=== PATIENT | male | born 1975 | race Caucasian/White ===

== ENCOUNTER 2016-12-03 10:40 | Observation (INO) | payer OTHER ==
[2016-12-03] MEDS ORDERED: SODIUM CHLORIDE 0.9% 1,000 ML IV STA (11:15)
--- NOTE | 2016-12-03 11:31 | ED ---
General Adult HPI <Kieran Quintana - Last Filed: 12/03/16 13:17> - General Source: patient, RN notes reviewed Mode of arrival: ambulatory Limitations: no limitations <June Vergara - Last Filed: 12/03/16 13:22> - General Chief complaint: Dizziness Stated complaint: dizziness, diarrhea Time Seen by Provider: 12/03/16 11:07 - History of Present Illness Initial comments: 41-year-old male presents emergency Department chief complaint of rectal bleeding and lightheadedness. Patient states he has a history of multiple polyps in his colon and has had part of his colon removed in the past. Patient states her last month or so his dose increased blood in his stool. Patient states her last few days he's noticed lightheadedness and has had episodes of diarrhea. Patient denies any fever chills with this. Patient denies any chest pain or shortness of breath. Patient states that he just does not feel right she just does not feel like himself so he was concerned. Patient states he is not currently having any other symptoms at this time.Patient denies any recent fever, chills, shortness of breath, chest pain, back pain, abdominal pain, nausea vomiting, numbness or tingling, dysuria or hematuria, constipation, headaches or visual changes, or any other current symptoms. (June Vergara) - Related Data Home Medications Medication Instructions Recorded Confirmed No Known Home Medications [No 12/03/16 12/03/16 Known Home Medications] Allergies Allergy/AdvReac Type Severity Reaction Status Date / Time hydromorphone [From Dilaudid] Allergy Rash/Hives Verified 12/03/16 11:21 Review of Systems ROS Other: All systems not noted in ROS Statement are negative. <MarianoKieran - Last Filed: 12/03/16 13:17> ROS Other: All systems not noted in ROS Statement are negative. <June Vergara - Last Filed: 12/03/16 13:22> ROS Statement: Those systems with pertinent positive or pertinent negative responses have been documented in the HPI. Past Medical History Past Medical History: No Reported History History of Any Multi-Drug Resistant Organisms: None Reported Past Surgical History: Appendectomy, Hernia Repair Additional Past Surgical History / Comment(s): COLECTOMY R/T POLYP Past Psychological History: No Psychological Hx Reported Smoking Status: Never smoker Past Alcohol Use History: None Reported Past Drug Use History: None Reported <June Vergara - Last Filed: 12/03/16 13:22> General Exam <Kieran Quintana - Last Filed: 12/03/16 13:17> Limitations: no limitations <June Vergara - Last Filed: 12/03/16 13:22> - General Exam Comments Initial Comments: General: The patient is awake and alert, in no distress, and does not appear acutely ill. Eye: Pupils are equal, round and reactive to light, extra-ocular movements are intact; there is normal conjunctiva bilaterally. No signs of icterus. Ears, nose, mouth and throat: There are moist mucous membranes. Neck: The neck is supple, there is no tenderness. Cardiovascular: There is a regular rate and rhythm. No murmur, rub or gallop is appreciated. Respiratory: Lungs are clear to auscultation, respirations are non-labored, breath sounds are equal. No wheezes, stridor, rales, or rhonchi. Gastrointestinal: Soft, non-distended, non-tender abdomen without masses or organomegaly noted. There is no rebound or guarding present. No CVA tenderness. Bowel sounds are unremarkable. Back: There is no tenderness to palpation in the midline. There is no obvious deformity. No rashes noted. Musculoskeletal: Normal ROM, no tenderness, There is no pedal edema. There is no calf tenderness or swelling. Sensation intact. Pulses equal bilaterally 2+. Neurological: CN II-XII intact, There are no obvious motor or sensory deficits. Coordination appears grossly intact. Speech is normal. Skin: Skin is warm and dry and no rashes or lesions are noted. Psychiatric: Cooperative, appropriate mood & affect, normal judgment. (June Vergara) Course <Kieran Quintana - Last Filed: 12/03/16 13:17> <June Vergara - Last Filed: 12/03/16 13:22> Vital Signs 12/03/16 12/03/16 12/03/16 10:53 11:43 11:44 Temperature 98.1 F Pulse Rate 96 Pulse Rate [ 88 99 [place] ] Respiratory 16 Rate Blood Pressure 157/91 Blood Pressure 142/89 129/89 [Right Arm] O2 Sat by Pulse 97 Oximetry 12/03/16 12:31 Temperature Pulse Rate 82 Pulse Rate [ [place] ] Respiratory 18 Rate Blood Pressure 125/83 Blood Pressure [Right Arm] O2 Sat by Pulse 100 Oximetry - Reevaluation(s) Reevaluation #1: 12/03/16 13:17 I did personally do a [id number] examination the patient did discuss the findings with him. His abdomen is soft and nontender just time I did do his stool which is brown blood neck stent. He still symptomatic he will get a blood transfusion. I did discuss the case with Dr. Coker, Dr. Martinez will be consulted (Kieran Quintana) Medical Decision Making - Lab Data Result diagrams: 12/03/16 11:31 12/03/16 11:31 <Kieran Quintana - Last Filed: 12/03/16 13:17> - Lab Data Result diagrams: 12/03/16 11:31 12/03/16 11:31 <June Vergara - Last Filed: 12/03/16 13:22> - Medical Decision Making 41-year-old male presents emergency department with chief complaint of rectal bleeding and lightheadedness. At this time patient lab work is reviewed that does show an anemia. We will give the patient 1 unit of blood. We will admit to Dr. Coker and have be staying in consult at. We'll repeat hemoglobins as well as Protonix with the patient. He shouldn't agreement with plan. (June Vergara) - Lab Data Lab Results 12/03/16 12/03/16 12/03/16 Range/Units 11:31 11:31 11:31 WBC 9.9 (3.8-10.6) k/uL RBC 5.05 (4.30-5.90) m/uL Hgb 7.5 L (13.0-17.5) gm/dL Hct 30.1 L (39.0-53.0) % MCV 59.5 L (80.0-100.0) fL MCH 14.8 L (25.0-35.0) pg MCHC 24.9 L (31.0-37.0) g/dL RDW 19.7 H (11.5-15.5) % Sodium 141 (137-145) mmol/L Potassium 4.4 (3.5-5.1) mmol/L Chloride 108 H (98-107) mmol/L Carbon Dioxide 25 (22-30) mmol/L Anion Gap 8 mmol/L BUN 10 (9-20) mg/dL Creatinine 1.00 (0.66-1.25) mg/dL Est GFR (MDRD) Af Amer >60 (>60 ml/min/1.73 sqM) Est GFR (MDRD) Non-Af >60 (>60 ml/min/1.73 sqM) Glucose 88 (74-99) mg/dL Calcium 9.7 (8.4-10.2) mg/dL Total Bilirubin 0.5 (0.2-1.3) mg/dL AST 26 (17-59) U/L ALT 37 (21-72) U/L Alkaline Phosphatase 54 (38-126) U/L Total Protein 7.2 (6.3-8.2) g/dL Albumin 4.3 (3.5-5.0) g/dL Urine Color Urine Appearance (Clear) Urine pH (5.0-8.0) Ur Specific [place] (1.001-1.035) Urine Protein (Negative) Urine Glucose (UA) (Negative) Urine Ketones (Negative) Urine Blood (Negative) Urine Nitrate (Negative) Urine Bilirubin (Negative) Urine Urobilinogen (<2.0) mg/dL Ur Leukocyte Esterase (Negative) Urine RBC (0-5) /hpf Urine WBC (0-5) /hpf Hyaline Casts (0-2) /lpf Urine Mucus (None) /hpf Stool Occult Blood (Negative) Blood Type O Negative Blood Type Recheck No Antibody Screen NEGATIVE Spec Expiration Date 12/06/2016 - 233012/03/16 12/03/16 Range/Units 11:31 13:05 WBC (3.8-10.6) k/uL RBC (4.30-5.90) m/uL Hgb (13.0-17.5) gm/dL Hct (39.0-53.0) % MCV (80.0-100.0) fL MCH (25.0-35.0) pg MCHC (31.0-37.0) g/dL RDW (11.5-15.5) % Sodium (137-145) mmol/L Potassium (3.5-5.1) mmol/L Chloride (98-107) mmol/L Carbon Dioxide (22-30) mmol/L Anion Gap mmol/L BUN (9-20) mg/dL Creatinine (0.66-1.25) mg/dL Est GFR (MDRD) Af Amer (>60 ml/min/1.73 sqM) Est GFR (MDRD) Non-Af (>60 ml/min/1.73 sqM) Glucose (74-99) mg/dL Calcium (8.4-10.2) mg/dL Total Bilirubin (0.2-1.3) mg/dL AST (17-59) U/L ALT (21-72) U/L Alkaline Phosphatase (38-126) U/L Total Protein (6.3-8.2) g/dL Albumin (3.5-5.0) g/dL Urine Color Yellow Urine Appearance Clear (Clear) Urine pH 5.0 (5.0-8.0) Ur Specific [place] 1.022 (1.001-1.035) Urine Protein Negative (Negative) Urine Glucose (UA) Negative (Negative) Urine Ketones Negative (Negative) Urine Blood Negative (Negative) Urine Nitrate Negative (Negative) Urine Bilirubin Negative (Negative) Urine Urobilinogen <2.0 (<2.0) mg/dL Ur Leukocyte Esterase Small H (Negative) Urine RBC 2 (0-5) /hpf Urine WBC 15 H (0-5) /hpf Hyaline Casts 1 (0-2) /lpf Urine Mucus Rare H (None) /hpf Stool Occult Blood Negative (Negative) Blood Type Blood Type Recheck Antibody Screen Spec Expiration Date Disposition <Kieran Quintana - Last Filed: 12/03/16 13:17> Time of Disposition: 13:22 Decision Date: 12/03/16 Decision Time: 13:22 <June Vergara - Last Filed: 12/03/16 13:22> Clinical Impression: GI bleed, Anemia, blood loss, Lightheadedness Disposition: ADMITTED IP TO THIS [facility] Condition: Stable
[2016-12-03 11:48] LABS: Anisocytosis Slight; CH 14.8; CHCM 25.2; HCT 30.1 % (39.0-53.0); HDW 3.62; HGB 7.5 gm/dL (13.0-17.5); Hypochromasia Marked; MCH 14.8 pg (25.0-35.0); MCV 59.5 fL (80.0-100.0); Mean Platelet Volume 6.8; Microcytosis Marked; Poikilocytosis Slight; RBC 5.05 m/uL (4.30-5.90); RDW 19.7 % (11.5-15.5); WBC 9.9 k/uL (3.8-10.6); WBC (Perox) 10.25
[2016-12-03 11:53] LABS: Appearance,Urine Clear (Clear); Bilirubin,Urine Negative (Negative); Glucose,Urine (UA) Negative (Negative); Ketones,Urine Negative (Negative); Leukocyte Esterase,Urine Small (Negative); Mucus,Urine Rare /hpf; Nitrite,Urine Negative (Negative); Particle Count 4831; Protein,Urine Negative (Negative); RBC,Urine 2 /hpf (0-5); Specific Gravity,Urine 1.022 (1.001-1.035); UA Billing (MACRO vs. MICRO) MICRO; Urobilinogen,Urine <2.0 mg/dL (<2.0); WBC,Urine 15 /hpf (0-5)
[2016-12-03 12:01] LABS: ALT 37 U/L (21-72); AST 26 U/L (17-59); Alkaline Phosphatase 54 U/L (38-126); Anion Gap 8 mmol/L; Blood Urea Nitrogen 10 mg/dL (9-20); Calcium 9.7 mg/dL (8.4-10.2); Carbon Dioxide 25 mmol/L (22-30); Chloride 108 mmol/L (98-107); Glucose 88 mg/dL (74-99); Non-African American GFR(MDRD) >60 (>60 ml/min/1.73 sqM); Potassium 4.4 mmol/L (3.5-5.1); Sodium 141 mmol/L (137-145); Total Bilirubin 0.5 mg/dL (0.2-1.3); Total Protein 7.2 g/dL (6.3-8.2)
[2016-12-03 12:11] LABS: MCHC 24.9 g/dL (31.0-37.0)
[2016-12-03] MEDS ORDERED: NALOXONE 0.4 MG/ML 1 ML VIAL IV PRN (13:26)
[2016-12-03] MEDS ORDERED: SODIUM CHLORIDE 0.9% 1,000 ML IV SCH (13:30)
[2016-12-03 13:56] LABS: Add Differential Manual Differential
[2016-12-03 14:02] LABS: Large Platelets Present; Myelocytes % 0.5 %; Nucleated Red Blood Cells 0 /100 WBC (0-0); Polychromasia Present; Total Cells Counted 200
[2016-12-03 14:03] LABS: Ovalocytes Present
[2016-12-03] MEDS ORDERED: PEG 3350-NA SULF,BICARB,CL/KCL 4,000 ML BOTTLE PO ONE (14:45)
--- NOTE | 2016-12-03 15:56 | P.GSCN ---
History of Present Illness Consult date: 12/03/16 Reason for Consult: GI bleed Requesting physician: June Vergara History of present illness: Patient is a 41-year-old male with medical history significant for subtotal colectomy at age 19 related to polyps with strong family history of colon cancer on father's side. Patient presented to the emergency department with complaints of dizziness and feeling lightheaded that started around 4 PM yesterday she was walking. Patient states that he always has a little bit of blood mixed in his stool but over the last week the amount of blood has increased. Patient denies chills, fevers, nausea, vomiting, shortness of breath , chest pain, or abdominal pain. Patient reports that his last colonoscopy was approximately 2 years ago, patient doesn't recall findings but states it was pretty much benign. Patient states that he only has 7 inches of colon left. In the emergency department patient was noted to have a hemoglobin of 7.5 with stool for occult blood negative. Patient is currently awaiting transfusion of 1 unit of packed cells. Patient states he feels better after receiving IV fluids. Past Medical History Past Medical History: GI Bleed Additional Past Medical History / Comment(s): Colon polyps-pt states pre- cancerous, lower GI bleeds. History of Any Multi-Drug Resistant Organisms: None Reported Past Surgical History: Appendectomy, Hernia Repair Additional Past Surgical History / Comment(s): COLECTOMY R/T POLYP at age 19yrs , R inguinal hernia repair, colonoscopies. Past Anesthesia/Blood Transfusion Reactions: No Reported Reaction Past Psychological History: No Psychological Hx Reported Additional Psychological History / Comment(s): Pt resides with his spouse and 2 of his children that are under the age of 18yrs. He is independent. Smoking Status: Never smoker Past Alcohol Use History: Occasional Past Drug Use History: None Reported - Past Family History Father Family Medical History: Cancer Additional Family Medical History / Comment(s): Father at the age of 25 yrs from colon cancer. Colon cancer runs in father's side of family. Mother Family Medical History: Cancer Additional Family Medical History / Comment(s): Pt states his mother was "riddled" with cancer and at the age of 53yrs. Medications and Allergies Home Medications Medication Instructions Recorded Confirmed Type No Known Home Medications [No 12/03/16 12/03/16 History Known Home Medications] Allergies Allergy/AdvReac Type Severity Reaction Status Date / Time hydromorphone [From Dilaudid] Allergy Rash/Hives Verified 12/03/16 11:21 Surgical - Exam Vital Signs Temp Pulse Resp BP Pulse Ox 98.1 F 96 16 157/91 97 12/03/16 10:53 12/03/16 10:53 12/03/16 10:53 12/03/16 10:53 12/03/16 10:53 GENERAL: Pt awake and alert, well-appearing, well-nourished, and in no acute distress. HEAD: Atraumatic, normocephalic. EYES: Pupils equal and round. Sclera anicteric, conjunctiva are normal. ENT: Moist mucous membranes. LUNGS: Breath sounds clear to auscultation bilaterally. No wheezes, rales, or rhonchi. HEART: Heart S1, S2, no S3 or S4. regular rate and rhythm.No murmurs, rubs or gallops. ABDOMEN: Soft, obese, nontender, nondistended, normoactive bowel sounds. No guarding, no rebound. No masses or organomegaly appreciated. EXTREMITIES Palpable peripheral pulses. No edema. No calf tenderness. NEUROLOGICAL: Pt oriented x 3. No focal deficits. Strength and sensation grossly intact. PSYCH: Normal mood, normal affect. SKIN: Warm, dry, intact. Results - Labs 12/03/16 11:31 12/03/16 11:31 Assessment and Plan Plan: Impression: 1. Acute blood loss, suspect secondary to lower GI bleed. Hemoglobin 7.5. 2. History of familial adenomatous polyposis with previous subtotal colectomy. Plan: Patient will undergo EGD and colonoscopy tomorrow. Patient will be started on a clear liquid diet and nothing by mouth after midnight. No need for colon prep with GoLYTELY. Patient will receive Fleet enema in a.m. Repeat CBC and BMP in a.m. Continue to follow with medical team. The above impression and plan have been discussed and directed by Dr. Martinez. Geeta CONN acting as scribe for Dr. Alvarez).
[2016-12-03 17:21] LABS: Anisocytosis Slight; Basophils # (A) 0.1 k/uL (0-0.2); Basophils % (A) 1 %; CHCM 25.6; Eosinophils # (A) 0.3 k/uL (0-0.7); Eosinophils % (A) 4 %; HCT 28.3 % (39.0-53.0); HDW 3.55; HGB 7.2 gm/dL (13.0-17.5); Hypochromasia Marked; Large Platelets Flag Moderate; Luc # (Auto) 0.25; Luc % (Auto) 3; Lymphocytes % (A) 22 %; MCV 59.4 fL (80.0-100.0); Mean Platelet Volume 12.1; Microcytosis Marked; Monocytes # (A) 0.3 k/uL (0-1.0); Monocytes % (A) 4 %; Neutrophils # (A) 6.2 k/uL (1.3-7.7); Neutrophils % (A) 68 %; Poikilocytosis Slight; RBC 4.76 m/uL (4.30-5.90); WBC 9.2 k/uL (3.8-10.6); WBC (Perox) 9.94
[2016-12-03 17:46] LABS: MCHC 25.3 g/dL (31.0-37.0)
[2016-12-03 18:00] LABS: Manual Review Performed; Polychromasia Present; Toxic Granulation Present
[2016-12-03] MEDS ORDERED: LIDOCAINE 1% 20 ML VIAL (10MG/ML) FOR IV START INTRADERMA PRN (18:37)
[2016-12-03] MEDS ORDERED: LACTATED RINGERS 1,000 ML IV SCH (18:45)
--- NOTE | 2016-12-03 21:06 | HP ---
DATE OF ADMISSION: Patient is a 41-year-old gentleman with known history of hereditary polyposis coli, for which patient underwent colectomy in the past. Patient has significant family history of colon cancer. Patient had chronic diarrhea multiple times and patient since last week has been having multiple episodes of diarrhea, about 15 to 20, with occasional blood in the stools. Patient was found to have stools on the rectal exam in ER. Patient was subsequently admitted, was evaluated by Surgery already, Dr. Martinez, who follows the patient as an outpatient. He is setting up the patient for colonoscopy as well as upper GI endoscopy. Patient was complaining of lightheadedness and generalized fatigue, found to have hemoglobin of 7.5. Patient is receiving IV fluids. Patient is on second liter at this point of time. Normal saline 100 mL was ordered from ER, which is appropriate. Patient will receive 1 unit of blood transfusion because of ( ) active GI bleed. REVIEW OF SYSTEMS: CONSTITUTIONAL: No fever, no malaise, no fatigue. HEENT: No recent visual problems or hearing problems. Denied any sore throat. CARDIOVASCULAR: No chest pain, orthopnea, PND, no palpitations, no syncope. PULMONARY: No shortness of breath, no cough, no hemoptysis. GASTROINTESTINAL: As described in HPI. NEUROLOGICAL: No headaches, no weakness, no numbness. HEMATOLOGICAL: Denies any bleeding or petechiae. GENITOURINARY: Denies any burning micturition, frequency, or urgency. MUSCULOSKELETAL/RHEUMATOLOGICAL: Denies any joint pain, swelling, or any muscle pain. ENDOCRINE: Denies any polyuria or polydipsia. GENERAL: As described in HPI. The rest of the 14 point review of systems is negative. PAST MEDICAL HISTORY: Obesity. PAST SURGICAL HISTORY: 1. Appendectomy. 2. Hernia repair. 3. Colectomy; patient only has a few centimeters of colon that is removed. SOCIAL HISTORY: Denied any smoking, alcohol abuse or any drug abuse. FAMILY HISTORY: Significant for cancer in multiple family members. PHYSICAL EXAMINATION: VITAL SIGNS: Temperature 97.0, pulse of 81, respiratory rate of 17. Blood pressure is 131/84. Saturating at 100% on room air. GENERAL: Patient has conjunctival pallor. Patient generally looks pale. Alert and oriented x3. HEENT: Pupils are round and equally reacting to light. EOMI. No scleral icterus. No conjunctival pallor. Normocephalic, atraumatic. No pharyngeal erythema. No thyromegaly. CARDIOVASCULAR: S1 and S2 present. No murmurs, rubs, or gallops. PULMONARY: Chest is clear to auscultation, no wheezing or crackles. ABDOMEN: Soft, nontender, nondistended, normoactive bowel sounds. No palpable organomegaly. MUSCULOSKELETAL: No joint swelling or deformity. EXTREMITIES: No cyanosis, clubbing, or pedal edema. NEUROLOGICAL: Gross neurological examination did not reveal any focal deficits. SKIN: No rashes. LABORATORY DATA: CBC, CMP are abnormal for low hemoglobin of 7.5. Patient's MCV is 59.5. I will obtain a ferritin liver. Patient may need IV infusions as an outpatient probably. After C difficile testing, patient may need symptomatic treatment for his diarrhea. ASSESSMENT AND PLAN: 1. Acute gastrointestinal bleed; unsure of the exact etiology. Can be secondary to polyps or arteriovenous malformations, and patient will go for colonoscopy today. 2. Chronic diarrhea with increased diarrhea now leading to acute renal failure clinically. Patient is receiving IV fluids. Will give him 1 unit of blood transfusion. 3. Iron deficiency anemia, which is chronic secondary to chronic gastrointestinal bleed. Will obtain a ferritin level. 4. Obesity. Counseling was provided. 5. History of hereditary polyposis. Patient had a polypectomy in the past. Patient's primary care physician is Dr. Padmini Rashid.
[2016-12-03 21:30] LABS: Anisocytosis Moderate; Basophils # (A) 0.1 k/uL (0-0.2); Basophils % (A) 1 %; CH 15.8; CHCM 25.4; Eosinophils # (A) 0.5 k/uL (0-0.7); Eosinophils % (A) 4 %; HCT 30.7 % (39.0-53.0); HDW 4.53; HGB 7.9 gm/dL (13.0-17.5); Hypochromasia Marked; Luc # (Auto) 0.34; Luc % (Auto) 3; Lymphocytes # (A) 2.3 k/uL (1.0-4.8); Lymphocytes % (A) 21 %; Mean Platelet Volume 8.7; Microcytosis Marked; Monocytes # (A) 0.6 k/uL (0-1.0); Monocytes % (A) 6 %; Neutrophils # (A) 7.1 k/uL (1.3-7.7); Neutrophils % (A) 65 %; Poikilocytosis Moderate; RBC 4.94 m/uL (4.30-5.90); RDW 21.1 % (11.5-15.5); WBC 10.9 k/uL (3.8-10.6); WBC (Perox) 11.37
[2016-12-03 21:33] LABS: MCHC 25.8 g/dL (31.0-37.0)
[2016-12-04 02:55] LABS: Anisocytosis Moderate; Basophils # (A) 0.1 k/uL (0-0.2); Basophils % (A) 1 %; CH 15.6; CHCM 25.6; Eosinophils # (A) 0.4 k/uL (0-0.7); Eosinophils % (A) 4 %; HCT 29.1 % (39.0-53.0); HDW 4.57; HGB 7.5 gm/dL (13.0-17.5); Hypochromasia Marked; Luc # (Auto) 0.25; Luc % (Auto) 3; Lymphocytes # (A) 2.2 k/uL (1.0-4.8); Lymphocytes % (A) 24 %; MCH 15.7 pg (25.0-35.0); MCV 61.1 fL (80.0-100.0); Mean Platelet Volume 7.2; Microcytosis Marked; Monocytes # (A) 0.5 k/uL (0-1.0); Monocytes % (A) 5 %; Neutrophils % (A) 63 %; Poikilocytosis Moderate; RBC 4.75 m/uL (4.30-5.90); RDW 21.2 % (11.5-15.5); WBC 9.5 k/uL (3.8-10.6); WBC (Perox) 9.47
[2016-12-04 02:58] LABS: MCHC 25.7 g/dL (31.0-37.0)
[2016-12-04 03:07] LABS: ALT 38 U/L (21-72); AST 25 U/L (17-59); Alkaline Phosphatase 48 U/L (38-126); Anion Gap 9 mmol/L; Blood Urea Nitrogen 7 mg/dL (9-20); Carbon Dioxide 23 mmol/L (22-30); Chloride 108 mmol/L (98-107); Glucose 88 mg/dL (74-99); Non-African American GFR(MDRD) >60 (>60 ml/min/1.73 sqM); Potassium 4.2 mmol/L (3.5-5.1); Sodium 140 mmol/L (137-145); Total Bilirubin 0.9 mg/dL (0.2-1.3); Total Protein 6.1 g/dL (6.3-8.2)
[2016-12-04 03:38] LABS: INR 1.1 (<1.1); Prothrombin Time 10.8 sec (9.0-12.0)
[2016-12-04 06:05] LABS: Anisocytosis Moderate; CH 15.9; HGB 7.6 gm/dL (13.0-17.5); Hypochromasia Marked; Microcytosis Marked; Poikilocytosis Marked; RDW 21.3 % (11.5-15.5)
[2016-12-04 06:20] LABS: HCT 28.8 % (39.0-53.0); MCH 15.5 pg (25.0-35.0); MCHC 26.3 g/dL (31.0-37.0); MCV 59.2 fL (80.0-100.0); Mean Platelet Volume 7.6; RBC 4.87 m/uL (4.30-5.90); RBC Fragment Flag Slight; WBC (Perox) 9.53
[2016-12-04 06:44] LABS: Add Differential Manual Differential
[2016-12-04 06:47] LABS: Metamyelocytes % 0.5 %; Nucleated Red Blood Cells 1 /100 WBC (0-0); Total Cells Counted 200
[2016-12-04 06:48] LABS: Manual Review Performed; WBC 9.4 k/uL (3.8-10.6)
[2016-12-04 06:49] LABS: Polychromasia Present
[2016-12-04] MEDS ORDERED: NA PHOS,M-B/NA PHOS,DI-BA 133 ML ENEMA RECTAL ONE (07:00)
[2016-12-04 08:01] VITALS: RESP 18
[2016-12-04] MEDS ORDERED: PANTOPRAZOLE 40 MG/10 ML VIAL IV SCH (09:00)
[2016-12-04] MEDS ORDERED: PROPOFOL 10 MG/ML 20 ML VIAL IV ONE (09:03)
[2016-12-04] MEDS ORDERED: IV FLUID CONTINUATION 700 ML IV ONE (09:05)
--- NOTE | 2016-12-04 09:25 | P.OP ---
Date of Procedure: 12/04/16 Preoperative Diagnosis: GI bleed Postoperative Diagnosis: No active GI bleed Mild antral gastritis Severe polyposis of rectum Procedure(s) Performed: EGD Colonoscopy Anesthesia: MAC Surgeon: Kalin Martinez Pathology: other (Rectal polyp) Condition: stable Disposition: PACU Description of Procedure: The patient's placed on the endoscopy table in the lateral position he received IV sedation. The gastroscope some placed oropharynx passed into the esophagus and into the stomach. Scope was then placed through the pylorus. The first and second portion of the duodenum appeared normal. The scope was then brought back and the antrum and there was minimal inflammation a biopsies performed. There is no evidence of upper GI bleed. The scope was unretroflexed and remainder of the stomach appeared normal. There was no hiatal hernia. The GE junction was at 47 is. The distal esophagus appeared normal. The proximal esophagus normal. Scope was withdrawn for patient. Next digital rectal exam was performed and a few external hemorrhoids were noted. The flexible colonoscope was then placed patient anus. The rectum was insufflated there was 100 polyps seen. There was no active bleeding in the rectum. The scope was then placed through the rectal stump and it around the 20 cm oziel the ileocolonic anastomosis visualized. There is known to any tumor inflammation the anastomosis. There is no stricture the anastomosis the scope was then brought back the rectum several photographs the rectum performed. and then a biopsy of a polyp was performed the scope was withdrawn for patient.
--- NOTE | 2016-12-04 13:33 | P.PN ---
Subjective Date of service 12/04/2016. Progress note being dictated for Dr. Coker. Interval history: This a 41-year-old gentleman admitted with acute GI bleed, etiology unclear, acute on chronic diarrhea in a patient with history of polyposis coli ,colectomy, acute renal failure and multiple other medical issues. Maintained on IV fluid hydration. Evaluated by surgery and patient is scheduled for both EGD and colonoscopy today. NPO. Hemoglobin 7.6, no signs or symptoms of active bleeding. C. difficile colitis ruled out. Denies chest pain , palpitations or increasing shortness of breath. Objective - Vital Signs Vital signs: Vital Signs Temp 98.0 F 12/04/16 11:59 Pulse 88 12/04/16 11:59 Resp 18 12/04/16 11:59 BP 146/82 12/04/16 11:59 Pulse Ox 97 12/04/16 11:59 Intake & Output 12/03/16 12/04/16 12/04/16 18:59 06:59 18:59 Intake Total 100 310 100 Balance 100 310 100 Weight 118.2 kg Intake: IV 100 Oral 100 Blood Product 0 310 Rc As-1 Unit 0 310 [id number] Other: # Voids 1 1 # Bowel Movements 0 1 - Exam PHYSICAL EXAM: VITAL SIGNS: As above GENERAL: [Sitting up in bed, no acute distress] HEENT: [Pupils equal conjunctiva normal.] NECK: [Supple, no JVD] RESPIRATORY EFFORT:[Normal] LUNGS: [Lungs essentially clear, no crackles rhonchi or wheezes] CARDIOVASCULAR[regular S1 and S2, no edema] GI: [Abdomen soft, nontender, positive bowel sounds.] PSYCH: [Alert and oriented -3, mood and affect normal.] NEURO: No focal deficits - Labs CBC & Chem 7: 12/04/16 05:46 12/04/16 02:41 Labs: Abnormal Lab Results - Last 24 Hours (Table) 12/03/16 12/03/16 12/03/16 Range/Units 16:53 16:53 21:21 WBC 10.9 H (3.8-10.6) k/uL Hgb 7.2 L 7.9 L (13.0-17.5) gm/dL Hct 28.3 L 30.7 L (39.0-53.0) % MCV 59.4 L 62.0 L (80.0-100.0) fL MCH 15.0 L 16.0 L (25.0-35.0) pg MCHC 25.3 L 25.8 L (31.0-37.0) g/dL RDW 20.0 H 21.1 H (11.5-15.5) % Nucleated RBCs (0-0) /100 WBC Chloride (98-107) mmol/L BUN (9-20) mg/dL Ferritin 2 L (18-464) ng/mL Total Protein (6.3-8.2) g/dL 12/04/16 12/04/16 12/04/16 Range/Units 02:41 02:41 05:46 WBC (3.8-10.6) k/uL Hgb 7.5 L 7.6 L (13.0-17.5) gm/dL Hct 29.1 L 28.8 L (39.0-53.0) % MCV 61.1 L 59.2 L (80.0-100.0) fL MCH 15.7 L 15.5 L (25.0-35.0) pg MCHC 25.7 L 26.3 L (31.0-37.0) g/dL RDW 21.2 H 21.3 H (11.5-15.5) % Nucleated RBCs 1 H (0-0) /100 WBC Chloride 108 H (98-107) mmol/L BUN 7 L (9-20) mg/dL Ferritin (18-464) ng/mL Total Protein 6.1 L (6.3-8.2) g/dL Assessment and Plan Plan: 1. Acute GI bleed, EGD and colonoscopy pending 2. [Acute on Chronic diarrhea, leading to acute renal failure 3. [C. difficile colitis and ruled out]. 4. [Chronic iron deficiency anemia, ferritin 2 ]. 5. [Obesity, BMI 36.3]. 6. hereditary polyposis, with history of polypectomy]. Plan: Continue on current medication regime ,monitoring and symptomatic treatment. As mentioned above patient is scheduled for both EGD and colonoscopy today. Close monitoring of hemoglobin. Iron added to med regime .Discharge planning in progress pending results of endoscopy procedures. Further recommendations to follow. The impression and plan of care has been dictated as directed. Dr.: I performed a H&P examination of this patient and discussed the same with the dictator. I agree with the dictator's note. Any additional findings/opinions/ etc. will be noted.
[2016-12-04] MEDS ORDERED: SODIUM FERRIC GLUCONAT-SUCROSE 125 MG in SODIUM CHLORIDE 0.9% 100 ML IVPB ONE (15:21)
[2016-12-04 15:35] LABS: Anisocytosis Moderate; CH 15.7; CHCM 25.8; HDW 4.58; Hypochromasia Marked; Large Platelets Flag Moderate; MCH 15.7 pg (25.0-35.0); MCV 60.8 fL (80.0-100.0); Mean Platelet Volume 10.9; Microcytosis Marked; Poikilocytosis Moderate; RDW 21.1 % (11.5-15.5); WBC 9.9 k/uL (3.8-10.6); WBC (Perox) 10.78
[2016-12-04 15:37] LABS: MCHC 25.8 g/dL (31.0-37.0)
--- NOTE | 2016-12-04 15:39 | P.DS ---
Providers Date of admission: 12/03/16 13:18 Expected date of discharge: 12/04/16 Attending physician: Yobany Coker Consults: 12/03/16 13:27 Consult Physician Routine Consulting Provider: Kalin Martinez Consult Reason/Comments: gi bleed Do you want consulting provider notified?: Yes Primary care physician: Padmini Rashid Hospital Course: Final Diagnoses: 1. Acute GI bleed, status post EGD and colonoscopy reporting no active bleed, mild antral gastritis and severe polyposis of rectum. 2. [Acute on Chronic diarrhea, leading to acute renal failure 3. [C. difficile colitis and ruled out]. 4. [Chronic iron deficiency anemia, ferritin 2 ]. 5. [Obesity, BMI 36.3]. 6. hereditary polyposis, with history of polypectomy]. 7. Acute symptomatic blood loss anemia secondary to #1, status post transfusion of 1 unit packed RBC. Hospital course:This is a 41-year-old gentleman admitted with acute GI bleed, etiology unclear, acute on chronic diarrhea in a patient with history of polyposis ,colectomy, acute renal failure and multiple other medical issues. Maintained on IV fluid hydration. Evaluated by surgery, underwent EGD and colonoscopy reporting no active bleed, mild antral gastritis, severe polyposis of rectum. Hemoglobin 7.5, MCV 59.5 on admission, received 1 unit of packed RBCs for symptomatic anemia; complaints of lightheadedness and generalized fatigue. Hemoglobin currently 7.6. Ferritin 2, received IV Venofer. Significant clinical improvement. Anticipate patient will need further Venofer infusions down the line. Patient cleared for discharge by surgery, Dr. Martinez. Patient is being discharged home in a stable condition with guarded prognosis. Patient Condition at Discharge: Stable Plan - Discharge Summary New Discharge Prescriptions: Ferrous Sulfate [Feosol] 325 mg PO DAILY #30 tab Omeprazole [PriLOSEC] 40 mg PO DAILY #30 capsule. Discharge Medication List Ferrous Sulfate [Feosol] 325 mg PO DAILY #30 tab 12/04/16 [Rx] Omeprazole [PriLOSEC] 40 mg PO DAILY #30 capsule. 12/04/16 [Rx] Follow up Appointment(s)/Referral(s): Padmini Rashid MD [Primary Care Provider] - 3 Days Kalin Martinez MD [STAFF PHYSICIAN] - 2 Weeks Ambulatory/Diagnostic Orders: Complete Blood Count w/diff [LAB.AMB] Time Frame: 2 Days, Location: Determined By Patient Activity/Diet/Wound Care/Special Instructions: Diet: Soft, bland pending venofer infusion Activity: Limited until follow up
[2016-12-04 16:11] LABS: Add Differential Manual Differential
[2016-12-04 16:13] LABS: Band Neutrophils % 0.5 %; Nucleated Red Blood Cells 0 /100 WBC (0-0); Polychromasia Present; Stomatocytes Present; Total Cells Counted 200
[2016-12-04 17:40] VITALS: BP 142/76; PULSE 76; TEMP 98.4
== END 2016-12-04 17:38 | disposition home or self-care (01) ==
LOC: EC 10:40 → INTOOBSV 13:18 → 4MS4W 13:18 → 6SEL 14:15
PROVIDERS: ADMIT Internal Medicine; ATTEND Internal Medicine
DX: K92.2 Gastrointestinal hemorrhage, unspecified (principal); K29.50 Unspecified chronic gastritis without bleeding; K52.9 Noninfective gastroenteritis and colitis, unspecified; N17.9 Acute kidney failure, unspecified; D62 Acute posthemorrhagic anemia; D50.9 Iron deficiency anemia, unspecified; E66.9 Obesity, unspecified; Z68.36 Body mass index [BMI] 36.0-36.9, adult; D12.8 Benign neoplasm of rectum; K64.4 Residual hemorrhoidal skin tags; Z86.010 Personal history of colon polyps; Z88.5 Allergy status to narcotic agent; Z90.49 Acquired absence of other specified parts of digestive tract; Z80.0 Family history of malignant neoplasm of digestive organs; Z79.899 Other long term (current) drug therapy
CPT/HCPCS: 96360; 99285; 36415; 86900; 86901; 88305; 80053 ×2; 82728; 85025 ×2; 85610; 86850; 86920; 82272; 81001; 88342; 87493; 87045; 89055; 87046; 45380; 43239; G0378 ×2; P9016; J2916; J2704; C9113; 96361; 96374

== ENCOUNTER 2019-01-27 08:14 | Day surgery (SDC) | payer OTHER ==
[2019-01-21 15:39] VITALS: BMI 33.9
[~2019-01-27 08:14] MED LIST: LACTATED RINGERS 1,000 ML IV SCH; LIDOCAINE 1% 20 ML VIAL (10MG/ML) FOR IV START INTRADERMA PRN
[2019-01-27 08:38] VITALS: RESP 16; TEMP 97.9
[2019-01-27] MEDS ORDERED: PROPOFOL 10 MG/ML 20 ML VIAL IV ONE (08:46)
--- NOTE | 2019-01-27 08:49 | P.GSHP ---
History of Present Illness H&P Date: 01/27/19 Chief Complaint: History of colonic polyposis This a 43-year-old male with a previous history of colonic polyposis syndrome. Patient's undergone previous subtotal colectomy with ileal rectal anastomosis. Patient rents today for colonoscopy. Past Medical History Past Medical History: GERD/Reflux, GI Bleed Additional Past Medical History / Comment(s): Colon polyps-pt states pre- cancerous, lower GI bleeds. History of Any Multi-Drug Resistant Organisms: None Reported Past Surgical History: Appendectomy, Bowel Resection, Hernia Repair Additional Past Surgical History / Comment(s): COLECTOMY R/T POLYP at age 19yrs, R inguinal hernia repair, colonoscopies. Past Anesthesia/Blood Transfusion Reactions: No Reported Reaction Smoking Status: Never smoker - Past Family History Father Family Medical History: Cancer Additional Family Medical History / Comment(s): Father at the age of 25 yrs from colon cancer. Colon cancer runs in father's side of family. Mother Family Medical History: Cancer Additional Family Medical History / Comment(s): Pt states his mother was "riddled" with cancer and at the age of 53yrs. Medications and Allergies Home Medications Medication Instructions Recorded Confirmed Type Ferrous Sulfate [Feosol] 325 mg PO DAILY 06/09/18 01/27/19 History Allergies Allergy/AdvReac Type Severity Reaction Status Date / Time hydromorphone [From Dilaudid] Allergy Rash/Hives Verified 01/27/19 08:35 Surgical - Exam Vital Signs Temp Pulse Resp BP Pulse Ox 97.9 F 73 16 142/89 97 01/27/19 08:30 01/27/19 08:30 01/27/19 08:30 01/27/19 08:30 01/27/19 08:30 - General well developed, well nourished, no distress - Eyes PERRL - ENT normal pinna - Neck no masses - Respiratory normal expansion - Cardiovascular Rhythm: regular - Abdomen Abdomen: soft, non tender Assessment and Plan Plan: History of colonic polyposis. We'll perform colonoscopy
--- NOTE | 2019-01-27 09:03 | P.OP ---
Date of Procedure: 01/27/19 Preoperative Diagnosis: Colonic polyposis Postoperative Diagnosis: Colonic polyposis syndrome with 100s of colon polyps visualized and rectal stump Procedure(s) Performed: Colonoscopy Anesthesia: MAC Surgeon: Kalin Martinez Pathology: other (Rectal polyp) Condition: stable Description of Procedure: The patient's placed on the endoscopy table in the lateral position. He received IV sedation. Digital rectal exam was performed which revealed a few internal and external hemorrhoids. The flexible colonoscope was then placed pa tient anus and passed through his rectal stump. The rectum measured approximately 25 cm in length. There were 100s of colonic polyps within the rectum. A random biopsy of the rectal polyp was performed. This was performed with the cold forcep. The scope was withdrawn. There is no evidence of any active bleeding. Patient sent to recovery in stable condition.
[2019-01-27 09:15] VITALS: BP 125/81; PULSE 66
== END 2019-01-27 09:31 | disposition home or self-care (01) ==
LOC: ORWHC2ENDO 08:14
PROVIDERS: ATTEND Surgery
DX: D12.8 Benign neoplasm of rectum (principal); K64.8 Other hemorrhoids; K64.4 Residual hemorrhoidal skin tags; K62.89 Other specified diseases of anus and rectum; K21.9 Gastro-esophageal reflux disease without esophagitis; Z86.010 Personal history of colon polyps; Z80.0 Family history of malignant neoplasm of digestive organs; Z90.49 Acquired absence of other specified parts of digestive tract; Z88.5 Allergy status to narcotic agent; Z79.899 Other long term (current) drug therapy
CPT/HCPCS: 88305; 45380; J2704

== ENCOUNTER 2019-02-02 15:49 | Emergency (ER) | payer OTHER ==
[2019-02-02 15:52] VITALS: RESP 18; TEMP 97.5
--- NOTE | 2019-02-02 16:16 | ED ---
General Adult HPI - General Chief complaint: Extremity Injury, Upper Stated complaint: Wrist Injury Time Seen by Provider: 02/02/19 15:57 Source: patient, RN notes reviewed, old records reviewed Mode of arrival: ambulatory Limitations: no limitations - History of Present Illness Initial comments: 42-year-old male patient with no pertinent past history presents to ED with right hand and wrist injury. Patient reports that he was cleaning when he slipped and caught himself on right outstretched arm. Pt did not fall from standing, pt was reaching into car. Denies any other injury or trauma to hand. Patient is having some mild pain in his mid hand region as well as wrist. Injury occurred 2 days ago. Patient denies any other complaints at this time. Systemic: Pt denies fatigue, myalgia, fever/chills, rash. Pt denies weakness, night sweats, weight loss. Neuro: Pt denies headache, visual disturbances, syncope or pre-syncope. HEENT: Pt denies ocular discharge or irritation, otalgia, rhinorrhea, pharyngitis or notable lymphadenopathy. Cardiopulmonary: Pt denies chest pain, SOB, heart palpitations, dyspnea on exertion. Abdominal/GI: Pt denies abdominal pain, n/v/d. : Pt denies dysuria, burning w/ urination, frequency/urgency. Denies new onset urinary or bowel incontinence. MSK: Pt denies myalgia, loss of strength or function in extremities. Neuro: Pt denies new onset weakness, paresthesias. - Related Data Home Medications Medication Instructions Recorded Confirmed Ferrous Sulfate [Feosol] 325 mg PO DAILY 06/09/18 01/27/19 Allergies Allergy/AdvReac Type Severity Reaction Status Date / Time hydromorphone [From Dilaudid] Allergy Rash/Hives Verified 02/02/19 15:52 Review of Systems ROS Statement: Those systems with pertinent positive or pertinent negative responses have been documented in the HPI. ROS Other: All systems not noted in ROS Statement are negative. Past Medical History Past Medical History: GERD/Reflux, GI Bleed Additional Past Medical History / Comment(s): Colon polyps-pt states pre- cancerous, lower GI bleeds. History of Any Multi-Drug Resistant Organisms: None Reported Past Surgical History: Appendectomy, Bowel Resection, Hernia Repair Additional Past Surgical History / Comment(s): COLECTOMY R/T POLYP at age 19yrs, R inguinal hernia repair, colonoscopies. Past Anesthesia/Blood Transfusion Reactions: No Reported Reaction Past Psychological History: No Psychological Hx Reported Smoking Status: Never smoker Past Alcohol Use History: None Reported Past Drug Use History: None Reported - Past Family History Father Family Medical History: Cancer Additional Family Medical History / Comment(s): Father at the age of 25 yrs from colon cancer. Colon cancer runs in father's side of family. Mother Family Medical History: Cancer Additional Family Medical History / Comment(s): Pt states his mother was "riddled" with cancer and at the age of 53yrs. General Exam - General Exam Comments Initial Comments: Constitutional: NAD, AOX3, Pt has pleasant affect. HEENT: NC/AT, trachea midline, neck supple, no lymphadenopathy. Posterior pharynx non erythematous, without exudates. External ears appear normal, without discharge. Mucous membranes moist. Eyes PERRLA, EOM intact. There is no scleral icterus. No pallor noted. Cardiopulmonary: RRR, no murmurs, rubs or gallops, no JVD noted. Lungs CTAB in anterior and posterior huynh. No peripheral edema. Abdominal exam: Abdomen soft and non-distended. Abdomen non-tender to palpation in all 4 quadrants. Bowel sounds active in LLQ. No hepatosplenomegaly. No ecchymosis Neuro: CN II-XII grossly intact. No nuchal rigidity. MSK: Mild amount of mid hand tenderness. No tenderness to wrist. No snuffbox tenderness. No ecchymoses. No erythema. Full active range of motion of hand, wrist, all digits, capillary refill less than 2 seconds. No posterior calf tenderness bilaterally, homans sign negative bilaterally. Posterior tibialis and radial pulse +2 bilaterally. Sensation intact in upper and lower extremities. Full active ROM in upper and lower extremities, 5/5 stregnth. Limitations: no limitations Course Vital Signs 02/02/19 15:49 Temperature 97.5 F L Pulse Rate 83 Respiratory 18 Rate Blood Pressure 150/98 O2 Sat by Pulse 98 Oximetry Medical Decision Making - Medical Decision Making 42-year-old male patient with no pertinent past history presents to ED with right hand and wrist injury. Patient reports that he was cleaning when he slipped and caught himself on right outstretched arm. Pt did not fall from standing, pt was reaching into car. Denies any other injury or trauma to hand. Patient is having some mild pain in his mid hand region as well as wrist. Injury occurred 2 days ago. Patient denies any other complaints at this time. Patient vital signs stable, afebrile. Physical exam displayed: Mild amount of mid hand tenderness. No tenderness to wrist. No snuffbox tenderness. No ecchymoses. Full active range of motion of hand, wrist, all digits, capillary refill less than 2 seconds. Radial pulse +2. Plain film of hand and wrist didn't display acute pathology. Patient will be discharged. Patient will continue to use nonsteroidal anti-inflammatories. Patient will follow up with primary care provider in 1-2 days. Patient follow up with orthopedic consult 1- 2 days. Patient return to ER if conditions worsen. Case discussed with Dr. Banuelos. Disposition Clinical Impression: Hand sprain, Wrist sprain Disposition: HOME SELF-CARE Condition: Stable Instructions (If sedation given, give patient instructions): Hand Sprain (ED), Wrist Sprain (ED) Additional Instructions: Patient to adhere to previously discussed treatment plan and will take medication(s) as directed. Patient to follow up with PCP in 1-2 days. Patient to return to ED if symptoms do not improve. Follow-up with primary care provider in 1-2 days, follow up with orthopedic consult. Return to ER if condition worsens. Continue to use Tylenol and Motrin as needed for pain. Is patient prescribed a controlled substance at d/c from ED?: No Referrals: Padmini Rashid MD [Primary Care Provider] - 1-2 days Armen Stoll MD [Medical Doctor] - 1-2 days
--- NOTE | 2019-02-02 16:18 | XR ---
EXAMINATION TYPE: XR wrist complete RT, XR hand complete RT DATE OF EXAM: 02/02/2019 CLINICAL HISTORY: Right wrist and hand pain after injury. TECHNIQUE: Frontal, lateral and oblique images of the right hand and wrist are obtained. Fourth scap hoid view right wrist is acquired. COMPARISON: None FINDINGS: There is no acute fracture/dislocation evident in the right wrist. The joint spaces in th e right wrist appear within normal limits. The overlying soft tissue appears unremarkable. Images of the right hand show no fracture or dislocation. The joint spaces of the right hand show mi ld narrowing throughout the phalanges. Overlying soft tissue is unremarkable. IMPRESSION: There is no acute fracture or dislocation in the right hand or wrist.
[2019-02-02 16:50] VITALS: BP 140/94; PULSE 80
== END 2019-02-02 16:42 | disposition home or self-care (01) ==
LOC: EC 15:49
DX: S63.501A Unspecified sprain of right wrist, initial encounter (principal); S63.91XA Sprain of unspecified part of right wrist and hand, initial encounter; Z79.899 Other long term (current) drug therapy; Z88.5 Allergy status to narcotic agent; W19.XXXA Unspecified fall, initial encounter; Y93.89 Activity, other specified
CPT/HCPCS: 99284